=== PATIENT | male | born 1945 | race Caucasian/White ===

== ENCOUNTER 2021-10-06 16:00 | Emergency (ER) | payer MEDICARE ==
[2021-10-06] MEDS ORDERED: Diphtheria,Pertussis(Acell),Tetanus Vaccine 0.5 ML Syringe IM ONE (17:28)
--- NOTE | 2021-10-06 17:31 | EDM.PDOC ---
ED HPI GENERAL MEDICAL PROBLEM - General Chief Complaint: Laceration Stated Complaint: Cut left thumb Time Seen by Provider: 10/06/21 17:01 Source of Information: Reports: Patient - History of Present Illness INITIAL COMMENTS - FREE TEXT/NARRATIVE: Phu is a 75 y/o male who comes to the ER with complaints of cutting his left thumb/hand while attempting to load a crossbow. No other injuries. He is due for a tetanus. ED ROS GENERAL - Review of Systems Review Of Systems: See Below Constitutional: Reports: No Symptoms HEENT: Reports: No Symptoms Respiratory: Reports: No Symptoms Cardiovascular: Reports: No Symptoms Endocrine: Reports: No Symptoms GI/Abdominal: Reports: No Symptoms : Reports: No Symptoms Musculoskeletal: Reports: No Symptoms Skin: Reports: Wound (left hand) Neurological: Reports: No Symptoms Psychiatric: Reports: No Symptoms Hematologic/Lymphatic: Reports: No Symptoms Immunologic: Reports: No Symptoms ED EXAM, SKIN/RASH Exam: See Below General Appearance: Alert, WD/WN, No Apparent Distress (Elderly male, dressed in junting attire.) Ears: Hearing Grossly Normal Throat/Mouth: Normal Voice Head: Atraumatic, Normocephalic Respiratory/Chest: No Respiratory Distress Neurological: Alert, Oriented, CN II-XII Intact, Normal Gait, No Motor/Sensory Deficits Skin: Warm, Dry, Intact, Wound/Incision (Note crescent shaped flap-type wound to left hand at base of thumb, mild bleeing, no foreign nody noted.) Course - Vital Signs Text/Narrative:: The patient was seen by the [facility]. The laceration was repaired. See Procedure Note. Procedure Note Laceration Repair Following verbal consent of the patient, risks, benefits, and alternatives were reviewed. The wound on the left hand was prepped with Betadine. Lidocaine 1%-5ml was used for local anesthesia. 6 interrupted sutures of 4-0 Vicryl was used for wound closure. Dressing was applied. Wound care instructions were reviewed. The patient tolerated the procedure well. Tdap was given today. EBL=minimal Written instructions were given and he left the ER in stable condition. - Orders/Labs/Meds Meds: Medications Discontinued Medications Generic Name Dose Route Start Last Admin Trade Name Freq PRN Reason Stop Dose Admin Lidocaine HCl 5 ml 10/06/21 17:02 Lidocaine 1% 5 Ml Sdv INJECT 10/06/21 17:03 ONETIME ONE Departure - Departure Time of Disposition: 17:26 Disposition: DC/Tfer to [facility] Condition: Good Clinical Impression: Injury, Need for Tdap vaccination Laceration of left hand Qualifiers: Encounter type: initial encounter Foreign body presence: without foreign body Qualified Code(s): S61.412A - Laceration without foreign body of left hand, initial encounter - Discharge Information Instructions: Laceration Care, Adult, [id number], VIS, Tetanus, Diphtheria (Td); Tetanus, Diphtheria, Pertussis (Tdap) - [facility] Referrals: PCP,Unknown [Ordering Only Provider] - Additional Instructions: -Ibuprofen 200mg 3 tablets oral every 6 hours as needed for pain -Acetaminophen 325mg 2-3 tablets oral every 4-6 hours as needed for pain -Keep dressing to wound dry and intact for 24 hours, then you may wash the wound daily with soap and water. Dress as needed. -Watch for signs of infection and seek care at the clinic or ER if needed -The sutures that were placed today will dissolve over the next 2-3 weeks, so you do not need to return to the clinic for removal. Allow them to dissolve and and do note attempt to pick or cut them out for at least 2 weeks. -Your Tetanus was updated at today's visit. - Problem List & Annotations (1) Laceration of left hand SNOMED Code(s): 480279493 Code(s): S61.412A - LACERATION WITHOUT FOREIGN BODY OF LEFT HAND, INIT ENCNTR Status: Acute Current Visit: Yes Annotation/Comment:: See Procedure Note Qualifiers: Encounter type: initial encounter Foreign body presence: without foreign body Qualified Code(s): S61.412A - Laceration without foreign body of left hand, initial encounter (2) Injury SNOMED Code(s): 027381600 Code(s): T14.90XA - INJURY, UNSPECIFIED, INITIAL ENCOUNTER Status: Acute Current Visit: Yes (3) Need for Tdap vaccination SNOMED Code(s): 126778580, 884030844379290 Code(s): Z23 - ENCOUNTER FOR IMMUNIZATION Status: Acute Current Visit: Yes Annotation/Comment:: Tdap given tonight - Problem List Review Problem List Initiated/Reviewed/Updated: Yes - Assessment/Plan Plan: As above
[2021-10-06] MEDS ORDERED: Bacitracin/Neomycin/Polymyxin B Oint 0.9 GM U/D Packet TOP ONE (17:48)
== END 2021-10-06 18:26 | disposition home or self-care (01) ==
LOC: LL.ED 16:00
DX: S61.012A Laceration without foreign body of left thumb without damage to nail, initial encounter (principal); Z23 Encounter for immunization; W26.8XXA Contact with other sharp object(s), not elsewhere classified, initial encounter
CPT/HCPCS: 12001; 12002; 90471; 90715; 99283; 99283-25